=== PATIENT | female | born 1965 | race Caucasian/White ===

== ENCOUNTER 2017-07-08 20:16 | Inpatient (IN) ==
--- NOTE | 2017-07-08 20:28 | Emergency Department Note ---
Disposition Clinical Impression: Abdominal pain Qualifiers: Abdominal location: generalized Qualified Code(s): R10.84 - Generalized abdominal pain Low back pain Qualifiers: Chronicity: acute Back pain laterality: left Sciatica presence: without sciatica Qualified Code(s): M54.5 - Low back pain Constipation Qualifiers: Constipation type: unspecified constipation type Qualified Code(s): K59.00 - Constipation, unspecified Disposition: Admitted As Inpatient Condition: Good Referrals: NONE,PCP [Primary Care Provider] - Forms: ED Satisfaction Letter, Work/School Release Time of Disposition: 23:23 General Adult HPI - General Chief complaint: ED Abdominal Pain Stated complaint: abdominal/back pain Time Seen by Provider: 07/08/17 20:28 Source: patient Limitations: no limitations Nursing Notes Reviewed: Yes Vital Signs Reviewed: Yes - History of Present Illness HPI Narrative: Ms. Celeste is a very pleasant 51-year-old female who presents to the [facility] emergency department with the chief complaint of low back pain for duration of one day. She reports his back pain started she woke up this morning and has been constant since then. She notes this pain is localized to her left side. She has tried taking Motrin as well as using heating pad with mild relief only. Patient was seen on 07/03/17 here at the emergency department and was diagnosed with colitis and was given ciprofloxacin , Flagyl and NSAID therapy. Patient had an extensive workup involving a gallbladder ultrasound, CT of abdomen and pelvis as well as blood work. Since then patient has been taking all her medications as prescribed. She reports that her abdominal pain has slightly improved but still is complaining of diffuse achy abdominal pain. Her last bowel movement was yesterday. She denies any subjective fevers, chest pain, short of breath, palpitations, dysuria , gross hematuria, hematochezia, melena. Patient is a chronic smoker and smokes about 1 pack per day. She denies any alcohol abuse or illicit drug use. She denies any urinary incontinence, saddle anesthesia, lower extremity weakness or weight loss. No other complaints at this time. 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 EYES: Ocular movements grossly intact RESP: NRD without use of accessory musculature, CTA b/l with no wheezes/rales/ rhonchi CARD: Regular rhythm, without murmurs, rubs, or gallop ABD: soft, diffusely tender, no guarding/distention/rigidity SKIN: normal appearance, no pallor/diaphoresis,mottling,jaundice,cyanosis BACK: Left paraspinal spasm and tenderness EXT: PT pulses 2+ and symmetrical; no lateralizing edema; no other lesions seen PSYCH: appropriate mood/affect - General Limitations: no limitations General appearance: alert, in no apparent distress Course Course Narrative: Patient was seen and examined at bedside. Vital signs are reviewed and show a tachycardia in the 120s. Physical examination demonstrates left lumbar paraspinal spasm that is very tender to palpation. Her gambling exam demonstrates diffusely tender abdomen without any rigidity, rebound tenderness or distention. Physical examination was otherwise benign. Prior workup was extensively reviewed back on 07/03/2017. Patient has been taking all of her medication as prescribed including her Abx Cipro and Flagyl. In the setting of no improvement after therapy and diffusely tender abdomen will begin workup with CT of abdomen and pelvis with IV contrast, UA, CBC, CMP, lactic acid and will administer 1 L of IV, Zofran, Toradol and Cogentin. This disposition and plan was discussed with patient who was agreeable at this time. We will continue to monitor for improvement. 2223: Re-examination after CT showing back pain still present after Cogentin and Toradol. CBC showing mild leukocytosis of 12.3. UA, CMP and Lactic acid unremarkable. Potassium 20mEq given. CT scan result pending. 2321: CT scan demonstrates acute on chronic T1 vertebral body fracture as well as a large amount of stool within the colon that is consistent with obstruction versus ileus. There is no evidence of colitis at this time. Findings were relayed to general surgery team with Dr. Hamilton who recommended NG tube placement and coags. Hospitalist was paged and spoke with Dr. Pruett, who will accept this patient for hospital admission. No further recommendations at this time per their team. Disposition was discussed with patient who understands and agrees to this plan. All questions and concerns were addressed. Vital Signs Temperature 98.2 F 07/08/17 20:17 Pulse Rate 120 07/08/17 20:17 Respiratory Rate 20 07/08/17 20:17 Blood Pressure 179/102 07/08/17 20:17 O2 Sat by Pulse Oximetry 98 07/08/17 20:17 Temperature 98.2 F 07/08/17 20:17 Pulse Rate 97 07/08/17 21:49 Respiratory Rate 22 07/08/17 21:49 Blood Pressure 127/76 07/08/17 21:49 O2 Sat by Pulse Oximetry 99 07/08/17 21:49 Oxygen Delivery Oxygen Delivery Room Air Medical Decision Making - Medical Records Medical records reviewed: Yes I reviewed the patient's medical records. - Lab Data Lab results reviewed: Yes I reviewed the patient's lab results. Result diagrams: 07/08/17 21:29 07/08/17 21:29 Lab Results 07/08/17 07/08/17 07/08/17 Range/Units 20:42 21:29 21:29 WBC 12.8 H D (4.3-11.1) K/mcL RBC 3.61 L (3.82-4.97) M/mcL Hgb 11.0 L (11.5-15.4) g/dL Hct 32.4 L (35.3-44.9) % MCV 89.8 (83.0-100.0) fL MCH 30.5 (28.0-33.3) pg MCHC 34.0 (31.6-35.5) g/dL RDW 13.5 (11.5-14.5) % Plt Count 263 (140-400) K/mcL MPV 9.4 (9.4-12.4) fL Immature Gran % 0.3 (0-4) % Seg Neutrophils % 81.8 % Lymphocytes % 11.7 % Monocytes % 5.1 % Eosinophils % 0.6 % Basophils % 0.5 % Neutrophils # 10.5 H (1.6-8.9) K/mcL Lymphocytes # 1.5 (0.6-4.6) K/mcL Monocytes # 0.7 (0.0-1.3) K/mcL Eosinophils # 0.1 (0.0-0.6) K/mcL Basophils # 0.1 (0.0-0.2) K/mcL Sodium 136 (136-145) mEq/L Potassium 3.3 L (3.5-5.1) mEq/L Chloride 104 (98-107) mEq/L Carbon Dioxide 27 (23-29) mEq/L BUN 10 (6-20) mg/dL Creatinine 0.70 (0.60-1.20) mg/dL Est GFR ( Amer) > 60 (> 60) Est GFR (Non-Af Amer) > 60 (> 60) BUN/Creatinine Ratio 14 (6-26) Glucose 105 (70-105) mg/dL Calculated Osmolality 281 (280-300) Lactic Acid (0.5-2.2) mmol/L Calcium 9.3 (8.6-10.3) mg/dL Total Bilirubin 0.5 (0.3-1.0) mg/dL AST 27 (13-39) Units/L ALT 15 (7-52) Units/L Alkaline Phosphatase 78 (34-104) Units/L Serum Total Protein 7.5 (6.4-8.9) g/dL Albumin 3.8 (3.5-5.7) g/dL Globulin 3.7 H (2.4-3.5) g/dL Albumin/Globulin Ratio 1.0 L (1.1-2.2) Urine Color Yellow (Yellow) Urine Clarity Hazy A (Clear) Urine pH 5.5 (5.0-8.0) pH Units Ur Specific [place] 1.024 (1.010-1.025) Urine Protein Negative (Neg-Trace) mg/dL Urine Glucose (UA) Normal (Normal) mg/dL Urine Ketones Negative (Negative) mg/dL Urine Blood Negative (Negative) Urine Nitrite Negative (Negative) Urine Bilirubin Negative (Negative) Urine Urobilinogen Normal (Normal) mg/dL Ur Leukocyte Esterase Moderate H (Negative) Urine Microscopic RBC 0-3 (0-3) per hpf Urine Microscopic WBC 30-50 H (0-3) per hpf Ur Squamous Epith Cells Many H (None-Few) per lpf Urine Bacteria None Seen (None-Few) per hpf Hyaline Casts None Seen (None-Few) per lpf Ur Culture Indicated? NO. A (NO) 07/08/17 Range/Units 21:29 WBC (4.3-11.1) K/mcL RBC (3.82-4.97) M/mcL Hgb (11.5-15.4) g/dL Hct (35.3-44.9) % MCV (83.0-100.0) fL MCH (28.0-33.3) pg MCHC (31.6-35.5) g/dL RDW (11.5-14.5) % Plt Count (140-400) K/mcL MPV (9.4-12.4) fL Immature Gran % (0-4) % Seg Neutrophils % % Lymphocytes % % Monocytes % % Eosinophils % % Basophils % % Neutrophils # (1.6-8.9) K/mcL Lymphocytes # (0.6-4.6) K/mcL Monocytes # (0.0-1.3) K/mcL Eosinophils # (0.0-0.6) K/mcL Basophils # (0.0-0.2) K/mcL Sodium (136-145) mEq/L Potassium (3.5-5.1) mEq/L Chloride (98-107) mEq/L Carbon Dioxide (23-29) mEq/L BUN (6-20) mg/dL Creatinine (0.60-1.20) mg/dL Est GFR ( Amer) (> 60) Est GFR (Non-Af Amer) (> 60) BUN/Creatinine Ratio (6-26) Glucose (70-105) mg/dL Calculated Osmolality (280-300) Lactic Acid 0.7 (0.5-2.2) mmol/L Calcium (8.6-10.3) mg/dL Total Bilirubin (0.3-1.0) mg/dL AST (13-39) Units/L ALT (7-52) Units/L Alkaline Phosphatase (34-104) Units/L Serum Total Protein (6.4-8.9) g/dL Albumin (3.5-5.7) g/dL Globulin (2.4-3.5) g/dL Albumin/Globulin Ratio (1.1-2.2) Urine Color (Yellow) Urine Clarity (Clear) Urine pH (5.0-8.0) pH Units Ur Specific [place] (1.010-1.025) Urine Protein (Neg-Trace) mg/dL Urine Glucose (UA) (Normal) mg/dL Urine Ketones (Negative) mg/dL Urine Blood (Negative) Urine Nitrite (Negative) Urine Bilirubin (Negative) Urine Urobilinogen (Normal) mg/dL Ur Leukocyte Esterase (Negative) Urine Microscopic RBC (0-3) per hpf Urine Microscopic WBC (0-3) per hpf Ur Squamous Epith Cells (None-Few) per lpf Urine Bacteria (None-Few) per hpf Hyaline Casts (None-Few) per lpf Ur Culture Indicated? (NO) - Radiology Data Radiology results reviewed: Yes I reviewed the patient's radiology results.
[2017-07-08] MEDS ORDERED: Ondansetron ODT 4 MG TAB.RAPDIS SL ONE (20:47)
[2017-07-08] MEDS ORDERED: 0.9 % Sodium Chloride 1,000 ML IVC ONE (20:54)
[2017-07-08 20:58] LABS: Bilirubin,Urine Negative (Negative); Blood,Urine Negative (Negative); Color,Urine Yellow (Yellow); Glucose,Urine (UA) Normal (Normal); Ketones,Urine Negative (Negative); Leukocyte Esterase,Urine Moderate (Negative); Nitrite,Urine Negative (Negative); PH,Urine 5.5 pH Units (5.0-8.0); Protein,Urine Negative (Neg-Trace); Specific Gravity,Urine 1.024 (1.010-1.025); Urobilinogen,Urine Normal (Normal)
[2017-07-08 21:03] LABS: Bacteria,Urine None Seen per hpf (None-Few); Hyaline Casts,Urine None Seen per lpf (None-Few); RBC,Urine 0-3 per hpf (0-3); Squamous Epithelial Cell,Urine Many per lpf (None-Few); WBC,Urine 30-50 per hpf (0-3)
[2017-07-08 21:04] LABS: Clarity,Urine Hazy (Clear)
[2017-07-08] MEDS ORDERED: Ketorolac 30 MG/ML VIAL IVP ONE (21:05)
[2017-07-08 21:46] LABS: Basophils # 0.1 K/mcL (0.0-0.2); Basophils % 0.5 %; Eosinophils # 0.1 K/mcL (0.0-0.6); Eosinophils % 0.6 %; Hematocrit 32.4 % (35.3-44.9); Immature Granulocytes % 0.3 % (0-4); Lymphocytes # 1.5 K/mcL (0.6-4.6); Lymphocytes % 11.7 %; Mean Corpuscular Hemoglobin 30.5 pg (28.0-33.3); Mean Corpuscular Volume 89.8 fL (83.0-100.0); Mean Platelet Volume 9.4 fL (9.4-12.4); Monocytes # 0.7 K/mcL (0.0-1.3); Monocytes % 5.1 %; Neutrophils # 10.5 K/mcL (1.6-8.9); Platelet Count 263 K/mcL (140-400); Red Blood Count 3.61 M/mcL (3.82-4.97); Red Cell Distribution Width 13.5 % (11.5-14.5); Segmented Neutrophils % 81.8 %
[2017-07-08 22:06] LABS: Alanine Aminotransferase 15 Units/L (7-52); Albumin 3.8 g/dL (3.5-5.7); Alkaline Phosphatase 78 Units/L (34-104); Aspartate Amino Transferase 27 Units/L (13-39); BUN/Creatinine Ratio 14 (6-26); Bilirubin,Total 0.5 mg/dL (0.3-1.0); Blood Urea Nitrogen 10 mg/dL (6-20); Calcium 9.3 mg/dL (8.6-10.3); Carbon Dioxide 27 mEq/L (23-29); Chloride 104 mEq/L (98-107); Globulin 3.7 g/dL (2.4-3.5); Glucose 105 mg/dL (70-105); Osmolality,Calculated 281 (280-300); Potassium 3.3 mEq/L (3.5-5.1); Sodium 136 mEq/L (136-145); Total Protein 7.5 g/dL (6.4-8.9); eGFR For African Americans > 60 (> 60); eGFR For Non-African Americans > 60 (> 60)
--- NOTE | 2017-07-08 22:31 | Emergency Department Note ---
Disposition Clinical Impression: Abdominal pain, Low back pain Disposition: Still a Patient Condition: Good Referrals: NONE,PCP [Primary Care Provider] - Forms: ED Satisfaction Letter, Work/School Release General Adult HPI - General Chief complaint: ED Abdominal Pain Stated complaint: abdominal/back pain Time Seen by Provider: 07/08/17 20:28 Source: patient Limitations: no limitations Nursing Notes Reviewed: Yes Vital Signs Reviewed: Yes - History of Present Illness Pain Scale: 7 - Related Data Previous Rx's Medication Instructions Recorded Ciprofloxacin [Cipro] 500 mg PO BID 14 Days #28 tablet 07/03/17 Ibuprofen [Motrin] 600 mg PO Q8HR PRN #20 tab 07/03/17 metroNIDAZOLE [Flagyl] 500 mg PO TID #42 tablet 07/03/17 Allergies Allergy/AdvReac Type Severity Reaction Status Date / Time morphine Allergy Rash Verified 07/08/17 22:18 Past Medical History - Past Medical History Medical history: Reports: kidney stones Surgical history: Reports: non-contributory Psychiatric history: Reports: anxiety, depression 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 - Social History Smoking Status: Current every day smoker Smokeless Tobacco Status: No Alcohol use: Reports: none Drug use: Reports: marijuana Physical Exam - General Limitations: no limitations General appearance: alert, in no apparent distress Course Vital Signs Temperature 98.2 F 07/08/17 20:17 Pulse Rate 120 07/08/17 20:17 Respiratory Rate 20 07/08/17 20:17 Blood Pressure 179/102 07/08/17 20:17 O2 Sat by Pulse Oximetry 98 07/08/17 20:17 Temperature 98.2 F 07/08/17 20:17 Pulse Rate 93 07/08/17 23:05 Respiratory Rate 20 07/08/17 23:05 Blood Pressure 158/99 07/08/17 23:05 O2 Sat by Pulse Oximetry 99 07/08/17 23:05 Oxygen Delivery Oxygen Delivery Room Air Medical Decision Making - Lab Data Result diagrams: 07/08/17 21:29 07/08/17 21:29 Lab Results 07/08/17 07/08/17 07/08/17 Range/Units 20:42 21:29 21:29 WBC 12.8 H D (4.3-11.1) K/mcL RBC 3.61 L (3.82-4.97) M/mcL Hgb 11.0 L (11.5-15.4) g/dL Hct 32.4 L (35.3-44.9) % MCV 89.8 (83.0-100.0) fL MCH 30.5 (28.0-33.3) pg MCHC 34.0 (31.6-35.5) g/dL RDW 13.5 (11.5-14.5) % Plt Count 263 (140-400) K/mcL MPV 9.4 (9.4-12.4) fL Immature Gran % 0.3 (0-4) % Seg Neutrophils % 81.8 % Lymphocytes % 11.7 % Monocytes % 5.1 % Eosinophils % 0.6 % Basophils % 0.5 % Neutrophils # 10.5 H (1.6-8.9) K/mcL Lymphocytes # 1.5 (0.6-4.6) K/mcL Monocytes # 0.7 (0.0-1.3) K/mcL Eosinophils # 0.1 (0.0-0.6) K/mcL Basophils # 0.1 (0.0-0.2) K/mcL Sodium 136 (136-145) mEq/L Potassium 3.3 L (3.5-5.1) mEq/L Chloride 104 (98-107) mEq/L Carbon Dioxide 27 (23-29) mEq/L BUN 10 (6-20) mg/dL Creatinine 0.70 (0.60-1.20) mg/dL Est GFR ( Amer) > 60 (> 60) Est GFR (Non-Af Amer) > 60 (> 60) BUN/Creatinine Ratio 14 (6-26) Glucose 105 (70-105) mg/dL Calculated Osmolality 281 (280-300) Lactic Acid (0.5-2.2) mmol/L Calcium 9.3 (8.6-10.3) mg/dL Total Bilirubin 0.5 (0.3-1.0) mg/dL AST 27 (13-39) Units/L ALT 15 (7-52) Units/L Alkaline Phosphatase 78 (34-104) Units/L Serum Total Protein 7.5 (6.4-8.9) g/dL Albumin 3.8 (3.5-5.7) g/dL Globulin 3.7 H (2.4-3.5) g/dL Albumin/Globulin Ratio 1.0 L (1.1-2.2) Urine Color Yellow (Yellow) Urine Clarity Hazy A (Clear) Urine pH 5.5 (5.0-8.0) pH Units Ur Specific [place] 1.024 (1.010-1.025) Urine Protein Negative (Neg-Trace) mg/dL Urine Glucose (UA) Normal (Normal) mg/dL Urine Ketones Negative (Negative) mg/dL Urine Blood Negative (Negative) Urine Nitrite Negative (Negative) Urine Bilirubin Negative (Negative) Urine Urobilinogen Normal (Normal) mg/dL Ur Leukocyte Esterase Moderate H (Negative) Urine Microscopic RBC 0-3 (0-3) per hpf Urine Microscopic WBC 30-50 H (0-3) per hpf Ur Squamous Epith Cells Many H (None-Few) per lpf Urine Bacteria None Seen (None-Few) per hpf Hyaline Casts None Seen (None-Few) per lpf Ur Culture Indicated? NO. A (NO) 07/08/17 Range/Units 21:29 WBC (4.3-11.1) K/mcL RBC (3.82-4.97) M/mcL Hgb (11.5-15.4) g/dL Hct (35.3-44.9) % MCV (83.0-100.0) fL MCH (28.0-33.3) pg MCHC (31.6-35.5) g/dL RDW (11.5-14.5) % Plt Count (140-400) K/mcL MPV (9.4-12.4) fL Immature Gran % (0-4) % Seg Neutrophils % % Lymphocytes % % Monocytes % % Eosinophils % % Basophils % % Neutrophils # (1.6-8.9) K/mcL Lymphocytes # (0.6-4.6) K/mcL Monocytes # (0.0-1.3) K/mcL Eosinophils # (0.0-0.6) K/mcL Basophils # (0.0-0.2) K/mcL Sodium (136-145) mEq/L Potassium (3.5-5.1) mEq/L Chloride (98-107) mEq/L Carbon Dioxide (23-29) mEq/L BUN (6-20) mg/dL Creatinine (0.60-1.20) mg/dL Est GFR ( Amer) (> 60) Est GFR (Non-Af Amer) (> 60) BUN/Creatinine Ratio (6-26) Glucose (70-105) mg/dL Calculated Osmolality (280-300) Lactic Acid 0.7 (0.5-2.2) mmol/L Calcium (8.6-10.3) mg/dL Total Bilirubin (0.3-1.0) mg/dL AST (13-39) Units/L ALT (7-52) Units/L Alkaline Phosphatase (34-104) Units/L Serum Total Protein (6.4-8.9) g/dL Albumin (3.5-5.7) g/dL Globulin (2.4-3.5) g/dL Albumin/Globulin Ratio (1.1-2.2) Urine Color (Yellow) Urine Clarity (Clear) Urine pH (5.0-8.0) pH Units Ur Specific [place] (1.010-1.025) Urine Protein (Neg-Trace) mg/dL Urine Glucose (UA) (Normal) mg/dL Urine Ketones (Negative) mg/dL Urine Blood (Negative) Urine Nitrite (Negative) Urine Bilirubin (Negative) Urine Urobilinogen (Normal) mg/dL Ur Leukocyte Esterase (Negative) Urine Microscopic RBC (0-3) per hpf Urine Microscopic WBC (0-3) per hpf Ur Squamous Epith Cells (None-Few) per lpf Urine Bacteria (None-Few) per hpf Hyaline Casts (None-Few) per lpf Ur Culture Indicated? (NO) Attestation Statement - Attestation Attestation: I, David Kinney, examined this patient and my medical decision-making was reviewed with the DIMENSION SPECIFICATION INSPECTOR/PA/Advanced Practice Nurse/Resident Physician. I agree with the documented findings, disposition and treatment plan as described except to the extent set forth below. 51-year-old female presents emergency Department with concerns of abdominal pain and back pain. Patient was evaluated recently in emergency department diagnosed with colitis and took the full course of Cipro and Flagyl. Patient states she has had subjective fevers but denies taking her temperature. No hematochezia or melena. Abdominal pain and back pain of any medications. Patient will have repeat laboratory testing and a CT scan of her abdomen to evaluate for failure of outpatient antibiotics.
[2017-07-08 23:40] LABS: INR 1.1; Prothrombin Time 11.7 Seconds (9.4-12.1)
[2017-07-08 23:42] LABS: Activated Partial Thrombo Time 30.2 Seconds (26.0-36.0)
[2017-07-08] MEDS ORDERED: Ondansetron 4 MG/2 ML VIAL IVP PRN (23:54)
[2017-07-08] MEDS ORDERED: Naloxone 0.4 MG/ML INJ IVP PRN (23:54)
--- NOTE | 2017-07-08 23:59 | Internal Med History&Physical ---
Date of Encounter: 07/08/17 Time of Encounter: 23:56 Internal Medicine - H&P: HPI Chief complaint: Back pain Admitted From: Home Plans for Post Hospital Care: Home History of present illness: Ms. Celeste is a 51 year old female with medical history of anxiety and depression, chronic tobacco abuse. She presented to the ER initially on with abdominal pain and was diagnosed with colitis and nephrolithiasis by imaging. She was discharged home with ciprofloxacin, Flagyl and NSAIDs. During that visit, she had an extensive workup including a negative gallbladder ultrasound, CT abdomen and pelvis as well as blood work. The patient has been compliant with her medications. She re-presented today with complaints of left-sided low back pain which has been severe and constant since waking up in the morning. The pain is non- radiating, and was not relieved by [id number] medications. She denies any new nausea or vomiting, reports that the right lower quadrant abdominal pain improved very minimally. Last bowel movement was 2 days ago. She denies fever, chest pain, shortness of breath, palpitations, hematuria, hematemesis or melena. She reports having had problems with bowel movement since her teenage years. Status post recently diagnosed with colon cancer. She denies any illicit drug use. The CAT scan that was done 07/03/17 had revealed a possible chronic L1 vertebral fracture. The patient denies urinary or bowel incontinence, saddle anesthesia, lower extremity weakness or weight loss. CT scan today demonstrates acute vs chronic L1 vertebral body fracture as well as a large amount of stool within the colon that is consistent with obstruction versus ileus. Patient will be placed on observation for further workup for vertebral body fracture as well as management of ileus vs obstruction versus constipation. Past Med Surg Social Fam HX - Past Medical History Medical history: kidney stones Psychiatric history: anxiety, depression - Past Surgical History Surgical History: non-contributory - Social History Smoking Status: Current every day smoker Smokeless Tobacco Status: No Alcohol use: none Drug use: marijuana Internal Medicine - H&P: Meds Ciprofloxacin [Cipro] 500 mg PO BID 14 Days #28 tablet 07/03/17 [Rx] Ibuprofen [Motrin] 600 mg PO Q8HR PRN #20 tab 07/03/17 [Rx] metroNIDAZOLE [Flagyl] 500 mg PO TID #42 tablet 07/03/17 [Rx] 3 Allergy/AdvReac Type Severity Reaction Status Date / Time morphine Allergy Rash Verified 07/08/17 22:18 All Systems PM: A 10-system review of systems was performed and is negative for pertinent findings except as documented above in the HPI. - Constitutional Constitutional: as per HPI - EENT Eyes: as per HPI Ears: as per HPI Nose, mouth and throat: as per HPI - Cardiovascular Cardiovascular ROS IM: as per HPI - Respiratory Respiratory: as per HPI - Gastrointestinal Gastrointestinal: as per HPI - Genitourinary Genitourinary: as per HPI - Musculoskeletal Musculoskeletal ROS IM: as per HPI - Integumentary Integumentary IM: as per HPI - Neurological Neurological ROS: as per HPI - Hematologic/Lymphatic Hematologic/Lymphatic: as per HPI - Constitutional Vitals: Temp Pulse Resp BP Pulse Ox 98.2 F 93 20 158/99 99 07/08/17 20:17 07/08/17 23:05 07/08/17 23:05 07/08/17 23:05 07/08/17 23:05 General appearance: Present: cachectic, mild distress (mild painful distress), pleasant - Head Head exam: Present: atraumatic, normocephalic - Eye Eye exam: Present: PERRL, conjuntiva pink, sclera anicteric Pupils: Present: PERRL - Neck Neck exam general surgery: Present: supple, trachea midline. Absent: lymphadenopathy - Respiratory Respiratory exam: Present: CTAB. Absent: accessory muscle use, rales, rhonchi, wheezes - Cardiovascular Cardiovascular exam: Present: RRR, +S1, +S2. Absent: diastolic murmur, gallop, rubs, systolic murmur - GI/Abdominal GI/Abdominal exam: Present: normal bowel sounds, soft, tenderness (RLQ tenderness. ), no peritoneal signs. Absent: distended - Extremities Exam Extremities exam: Present: warm, radial pulses palpable and symmetrical. Absent : calf tenderness, cyanotic, pedal edema - Back Exam Additional comments: focal Left lower lumbar region tenderness - Neurological Exam Neurological exam: Present: alert, CN II-XII intact, oriented X3, no focal deficits. Absent: pronater drift, facial droop, speech deficit - Skin Skin exam: Present: dry, intact Internal Med - H&P Results - Labs CBC & Chem 7: 07/08/17 21:29 07/08/17 21:29 Labs: Short CBC 07/08/17 Range/Units 21:29 WBC 12.8 H D (4.3-11.1) K/mcL Hgb 11.0 L (11.5-15.4) g/dL Hct 32.4 L (35.3-44.9) % Plt Count 263 (140-400) K/mcL Neutrophils # 10.5 H (1.6-8.9) K/mcL BMP 07/08/17 21:29 Sodium 136 Potassium 3.3 L Chloride 104 Carbon Dioxide 27 BUN 10 Creatinine 0.70 Glucose 105 Calcium 9.3 Liver Function 07/08/17 Range/Units 21:29 Total Bilirubin 0.5 (0.3-1.0) mg/dL AST 27 (13-39) Units/L ALT 15 (7-52) Units/L Alkaline Phosphatase 78 (34-104) Units/L Albumin 3.8 (3.5-5.7) g/dL Urine 07/08/17 Range/Units 20:42 Urine Color Yellow (Yellow) Urine Clarity Hazy A (Clear) Urine pH 5.5 (5.0-8.0) pH Units Ur Specific Salmon 1.024 (1.010-1.025) Urine Protein Negative (Neg-Trace) mg/dL Urine Glucose (UA) Normal (Normal) mg/dL - Impressions ITS Impressions Abdomen/Pelvis CT 07/08/17 21:16 IMPRESSION: Although described previously is chronic, some of the fracture planes involving the L1 vertebral body appear to be well defined, and therefore this fracture has a more acute appearance. That would be better evaluated with a dedicated lumbar spine CT or MRI. There is a large amount of stool within the colon, concerning for constipation. Obstruction is also considered, especially given the mural thickening in the region of the splenic flexure. Consider direct visualization. Focal fluid filled dilation of small bowel in the left mid upper abdomen with fecalization of contents. Again, that is nonspecific. It does suggests stasis, possibly ileus, although a developing obstruction would be considered as well. Consider further evaluation with a small bowel follow-through for better evaluation of the bowel motility on a more dynamic basis. D/ / Rafiq Meier MD / Rafiq Meier MD Interpreting Provider: Rafiq Meier MD - Assessment and plan (1) Ileus Current Visit: Yes Status: Acute Assessment and plan: Abdomen CT shows focal fluid dilation of small bowel nonspecific possible ileus , possible obstruction. Obtain small bowel follow through. Nothing by mouth for now. Surgery has been consulted (2) Lumbar vertebral fracture Current Visit: Yes Status: Acute Assessment and plan: Patient with 5 days history of left lower back pain. No history of trauma. Abdomen CT done 07/03/17 and 07/09/17 with different views regarding chronicity of fracture of L1 . Patient states Chronic tobacco use possible osteoporosis. Doing MRI of the lumbar spine, obtain vitamin D level. Consider spine surgery evaluation depending on reports of MRI. Pain control. Qualifiers: Encounter type: initial encounter Lumbar vertebra fracture level: L1 Fracture type: closed Fracture morphology: unspecified fracture morphology Qualified Code(s): S32.019A - Unspecified fracture of first lumbar vertebra, initial encounter for closed fracture (3) Constipation Current Visit: Yes Status: Acute Assessment and plan: Abdomen and pelvis CAT scan shows large amount of stool in the colon consulted for constipation Is Also Considered. The Thickening in the Region of the Splenic Flexor. Surgery Was Consulted by the ER Team. Place Patient Nothing by Mouth for Now. Qualifiers: Constipation type: unspecified constipation type Qualified Code(s): K59.00 - Constipation, unspecified (4) Colitis Current Visit: Yes Status: Acute Assessment and plan: Continue ciprofloxacin and Flagyl IV. (5) Tobacco abuse Current Visit: Yes Status: Chronic Assessment and plan: Encouraged cessation. (6) Hypokalemia Current Visit: Yes Status: Acute Assessment and plan: replaced , rpt chem a.m (7) Leukocytosis Current Visit: Yes Status: Acute Assessment and plan: New compared to CBC of 07/03 Continue cipro and flagyl IV, continue to monitor Qualifiers: Leukocytosis type: unspecified Qualified Code(s): D72.829 - Elevated white blood cell count, unspecified - Time Spent With Patient Total time spent is greater than 50% in coordination of care (as documented) at patient's floor/unit and/or counseling patient:
[2017-07-09 01:03] LABS: Basophils # 0.1 K/mcL (0.0-0.2); Basophils % 0.6 %; Eosinophils # 0.1 K/mcL (0.0-0.6); Eosinophils % 0.8 %; Hematocrit 32.4 % (35.3-44.9); Hemoglobin 10.8 g/dL (11.5-15.4); Immature Granulocytes % 0.5 % (0-4); Lymphocytes # 1.9 K/mcL (0.6-4.6); Lymphocytes % 17.5 %; Mean Corpuscular HGB Conc 33.3 g/dL (31.6-35.5); Mean Corpuscular Hemoglobin 30.6 pg (28.0-33.3); Mean Corpuscular Volume 91.8 fL (83.0-100.0); Mean Platelet Volume 9.8 fL (9.4-12.4); Monocytes # 0.5 K/mcL (0.0-1.3); Monocytes % 4.6 %; Neutrophils # 8.1 K/mcL (1.6-8.9); Platelet Count 254 K/mcL (140-400); Red Blood Count 3.53 M/mcL (3.82-4.97); Red Cell Distribution Width 13.6 % (11.5-14.5)
[2017-07-09] MEDS: MetroNIDAZOLE 500 MG/100 ML 500 MG/100 ML BAG IVPB SCH ×4 (01:11→23:55)
[2017-07-09] MEDS: OXYCODONE Oral CONC 10 MG/0.5 ML ORAL.SYG SL PRN ×3 (01:12→15:16)
[2017-07-09] MEDS: 0.9 % Sodium Chloride 1,000 ML IVC SCH ×3 (01:12→23:56)
[2017-07-09 01:20] LABS: BUN/Creatinine Ratio 13 (6-26); Blood Urea Nitrogen 8 mg/dL (6-20); Calcium 8.5 mg/dL (8.6-10.3); Carbon Dioxide 24 mEq/L (23-29); Chloride 109 mEq/L (98-107); Glucose 88 mg/dL (70-105); Osmolality,Calculated 284 (280-300); Potassium 3.5 mEq/L (3.5-5.1); Sodium 138 mEq/L (136-145); eGFR For African Americans > 60 (> 60); eGFR For Non-African Americans > 60 (> 60)
[2017-07-09] MEDS: Ketorolac 15 MG/ML VIAL IVP PRN ×3 (04:03→17:35)
--- NOTE | 2017-07-09 09:30 | General Surgery Consult Note ---
<Mukesh Locke - Last Filed: 07/09/17 13:35> Date of Encounter: 07/09/17 Time of Encounter: 08:45 Assessment and Plan (1) Constipation Current Visit: Yes Status: Acute Pt with large amounts of stool in Colon on CT scan, backing up into the small intestine. No signs of obstruction Exam is benign. presentation most consistent with constipation. May be related to opioid use. Hx of Opioid abuse and Suboxone treatment. Plan: Clear liquid diet once patient begins to move her bowels well can advance diet Miralax bowel prep patient can drink slowly through out the day as tolerated Milk and Molasses enema x 2 one given this morning one this evening. COntinue Zofran PRN for Nausea continue pain control. Qualifiers: Constipation type: unspecified constipation type Qualified Code(s): K59.00 - Constipation, unspecified (2) Lumbar vertebral fracture Current Visit: Yes Status: Acute Management per primary team Qualifiers: Encounter type: initial encounter Lumbar vertebra fracture level: L1 Fracture type: closed Fracture morphology: unspecified fracture morphology Qualified Code(s): S32.019A - Unspecified fracture of first lumbar vertebra, initial encounter for closed fracture History of Present Illness Consult date: 07/08/17 Reason for consult: abdominal pain Requesting physician: Caryn Walker History of present illness: 51 yo F c PMhx of Kidney stones, Anxiety, Depression, and IVDA reports to [facility] c /o Abd pain and back pain. Patient was seen in ED on 07/03 for complaints of abd and R flank pain that began 3 days earlier and worked up with GB u/s, CT abd pelvis which showed normal gallbladder, L1 compression Fx, and wall thickening of the hepatic flexure and transverese colon. Patient was sent home on 14 days course of cipro/flagyl, Zofran and Ibuprofen. Patient reports being compliant with her medications. Patient came back yesterday in for abd pain and back pain that began that morning. Patient reports last BM was wednesday. She says her normal pattern is a bowel movement every other day. She says it can be every 3 days though. Patient was worked up int he ED again with a CT abd pelvis which remonstrated the Compression fracture though now thought to be acute on chronic. Patient also noted to have a large amount of stool in the colon, focal mural thickening of the large bowel within the region of the splenic flexure, fluid filled dialtion of small bowel withing hte left mid upper abdomen with some fecalization of contents noted. Surgery was consulted for these imaging findings and concern of constipation vs. ileus, vs. obstruction. Patient was sent for a small bowel follow through this mornign by primary team, but was unable to have test performed due to contrast still being present from CT scan yesterday and the large amounts of stool in colon. Patient denies N, V, blood in stool, CP, SOB. Patient has never had a colonoscopy. Patient has a family hx of Colon CA with Sister dx in her 60s recently having surgery. Through looking at her [facility] patient was on Suboxone at least since 2015 but was last filled a months worth at the beginning of March. Past Med Surg Social Fam HX - Past Medical History Medical history: kidney stones Psychiatric history: anxiety, depression - Past Surgical History Surgical History: non-contributory - Social History Smoking Status: Current every day smoker Packs per day: 1 Smokeless Tobacco Status: No Alcohol use: none Drug use: marijuana - Family History Mother Hx Family Cardiac Disorders: Yes (Stroke) Sister Hx Family Cancer: Yes (colon) Medications and Allergies Ciprofloxacin [Cipro] 500 mg PO BID 14 Days #28 tablet 07/03/17 [Rx] Ibuprofen [Motrin] 600 mg PO Q8HR PRN #20 tab 07/03/17 [Rx] metroNIDAZOLE [Flagyl] 500 mg PO TID #42 tablet 07/03/17 [Rx] 3 Allergy/AdvReac Type Severity Reaction Status Date / Time morphine Allergy Rash Verified 07/08/17 22:18 Review of Systems All systems PM: The remainder of the systems were reviewed and are negative General Surgery Exam Initial Vital Signs Temp Pulse Resp BP Pulse Ox 98.2 F 120 20 179/102 98 07/08/17 20:17 07/08/17 20:17 07/08/17 20:17 07/08/17 20:17 07/08/17 20:17 - General physical appearance well developed, no distress - ENT no hearing loss - Neck trachea midline - Respiratory normal expansion, normal respiratory effort, clear to auscultation - Cardiovascular Cardiovascular exam: Present: RRR, no murmurs/rubs/gallops - Abdomen Abdomen general surgery: Present: bowel sounds present, soft, tender. Absent: guarding, rebound Abdominal Tenderness: Present: diffusely - Integumentary Integumentary general surgery: Present: warm and dry - Neurologic Present: CN 2-12 grossly intact - Musculoskeletal Present: normal posture - Psychiatric Psychiatric general surgery: Present: A&Ox3, speech is normal, memory intact Exam Initial Vital Signs Temp Pulse Resp BP Pulse Ox 98.2 F 120 20 179/102 98 07/08/17 20:17 07/08/17 20:17 07/08/17 20:17 07/08/17 20:17 07/08/17 20:17 Results - Labs 07/09/17 00:44 07/09/17 00:44 Abnormal lab results RBC 3.53 M/mcL (3.82-4.97) L 07/09/17 00:44 Hgb 10.8 g/dL (11.5-15.4) L 07/09/17 00:44 Hct 32.4 % (35.3-44.9) L 07/09/17 00:44 Chloride 109 mEq/L (98-107) H 07/09/17 00:44 Calcium 8.5 mg/dL (8.6-10.3) L 07/09/17 00:44 Globulin 3.7 g/dL (2.4-3.5) H 07/08/17 21:29 Albumin/Globulin Ratio 1.0 (1.1-2.2) L 07/08/17 21:29 Urine Clarity Hazy (Clear) A 07/08/17 20:42 Ur Leukocyte Esterase Moderate (Negative) H 07/08/17 20:42 Urine Microscopic WBC 30-50 per hpf (0-3) H 07/08/17 20:42 Ur Squamous Epith Cells Many per lpf (None-Few) H 07/08/17 20:42 Ur Culture Indicated? NO. (NO) A 07/08/17 20:42 Diabetes panel 07/09/17 Range/Units 00:44 Sodium 138 (136-145) mEq/L Potassium 3.5 (3.5-5.1) mEq/L Chloride 109 H (98-107) mEq/L Carbon Dioxide 24 (23-29) mEq/L BUN 8 (6-20) mg/dL Creatinine 0.61 (0.60-1.20) mg/dL Glucose 88 (70-105) mg/dL Calcium 8.5 L (8.6-10.3) mg/dL Calcium panel 07/09/17 Range/Units 00:44 Calcium 8.5 L (8.6-10.3) mg/dL Pituitary panel 07/09/17 Range/Units 00:44 Sodium 138 (136-145) mEq/L Potassium 3.5 (3.5-5.1) mEq/L Chloride 109 H (98-107) mEq/L Carbon Dioxide 24 (23-29) mEq/L BUN 8 (6-20) mg/dL Creatinine 0.61 (0.60-1.20) mg/dL Glucose 88 (70-105) mg/dL Calcium 8.5 L (8.6-10.3) mg/dL Adrenal panel 07/09/17 Range/Units 00:44 Sodium 138 (136-145) mEq/L Potassium 3.5 (3.5-5.1) mEq/L Chloride 109 H (98-107) mEq/L Carbon Dioxide 24 (23-29) mEq/L BUN 8 (6-20) mg/dL Creatinine 0.61 (0.60-1.20) mg/dL Glucose 88 (70-105) mg/dL Calcium 8.5 L (8.6-10.3) mg/dL All other labs normal. Consult Discharge Plan - Plan Referrals: NONE,PCP [Primary Care Provider] - <Abimael Hamilton - Last Filed: 07/09/17 17:12> Date of Encounter: 07/09/17 Review of Systems All systems PM: The remainder of the systems were reviewed and are negative General Surgery Exam Initial Vital Signs Temp Pulse Resp BP Pulse Ox 98.2 F 120 20 179/102 98 07/08/17 20:17 07/08/17 20:17 07/08/17 20:17 07/08/17 20:17 07/08/17 20:17 Exam Initial Vital Signs Temp Pulse Resp BP Pulse Ox 98.2 F 120 20 179/102 98 07/08/17 20:17 07/08/17 20:17 07/08/17 20:17 07/08/17 20:17 07/08/17 20:17 Results - Labs 07/09/17 00:44 07/09/17 00:44 Abnormal lab results RBC 3.53 M/mcL (3.82-4.97) L 07/09/17 00:44 Hgb 10.8 g/dL (11.5-15.4) L 07/09/17 00:44 Hct 32.4 % (35.3-44.9) L 07/09/17 00:44 Chloride 109 mEq/L (98-107) H 07/09/17 00:44 Calcium 8.5 mg/dL (8.6-10.3) L 07/09/17 00:44 Globulin 3.7 g/dL (2.4-3.5) H 07/08/17 21:29 Albumin/Globulin Ratio 1.0 (1.1-2.2) L 07/08/17 21:29 25-OH Vitamin D Total 13 ng/mL (30-80) L 07/09/17 00:44 Urine Clarity Hazy (Clear) A 07/08/17 20:42 Ur Leukocyte Esterase Moderate (Negative) H 07/08/17 20:42 Urine Microscopic WBC 30-50 per hpf (0-3) H 07/08/17 20:42 Ur Squamous Epith Cells Many per lpf (None-Few) H 07/08/17 20:42 Ur Culture Indicated? NO. (NO) A 07/08/17 20:42 All other labs normal. - Attending Attestation I examined this patient and my medical decision-making was reviewed with the Resident Physician. I agree with the documented findings, disposition and treatment plan as described except to the extent set forth below. I reviewed the above assessment and evaluation and agree with the above plan. Patient with symptoms of abdominal pain but denies any nausea or vomiting. CT scan shows evidence of slight dilation of the small bowel with copious amounts of stool throughout the entire colon. I believe her symptoms are secondary to obstipation. Currently on examination she has less abdominal pain and no palpable masses noted. Agree with molasses enemas as well as GoLYTELY/MiraLAX Gatorade help clear away the stool. Agree with clear liquids and advance once the patient's bowel movements start to occur.
[2017-07-09] MEDS ORDERED: Polyethylene Glycol 3350 255 GM POWDER PO ONE (10:03)
[2017-07-09] MEDS ORDERED: Milk and Molasses Enema 200 ML RC ONE ×2 (10:03→20:00)
--- NOTE | 2017-07-09 15:51 | Internal Med Progress Note ---
Date of Encounter: 07/09/17 Time of Encounter: 15:47 - Assessment and plan (1) Tobacco abuse Current Visit: Yes Status: Chronic Assessment and plan: cessation. (2) Colitis Current Visit: Yes Status: Acute Assessment and plan: Continue ciprofloxacin and Flagyl IV antibiotics. (3) Constipation Current Visit: Yes Status: Acute Assessment and plan: Abdomen and pelvis CAT scan showed large amount of stool in the colon. Unable to complete small bowel follow-through secondary to contrast and stool load General surgery treating constipation versus ileus versus obstruction. Diet as per their instructions which are clears after bowel movements and then advance as tolerated. Qualifiers: Constipation type: unspecified constipation type Qualified Code(s): K59.00 - Constipation, unspecified (4) Ileus Current Visit: Yes Status: Acute Assessment and plan: Abdomen CT shows focal fluid dilation of small bowel nonspecific possible ileus , possible obstruction. Unable to complete small bowel follow-through secondary to stool load and contrast from previous test Diet per general surgery (5) Lumbar vertebral fracture Current Visit: Yes Status: Acute Assessment and plan: Patient with 5 days history of left lower back pain. No history of trauma. Abdomen CT done 07/03/17 and 07/09/17 with different views regarding chronicity of fracture of L1 . MRI of the lumbar spine reviewed Spine surgery evaluation pending Pain control. Qualifiers: Encounter type: initial encounter Lumbar vertebra fracture level: L1 Fracture type: closed Fracture morphology: unspecified fracture morphology Qualified Code(s): S32.019A - Unspecified fracture of first lumbar vertebra, initial encounter for closed fracture (6) Hypokalemia Current Visit: Yes Status: Acute Assessment and plan: replaced , normalized (7) Leukocytosis Current Visit: Yes Status: Acute Assessment and plan: Normalized Continue cipro and flagyl IV continue to monitor Qualifiers: Leukocytosis type: unspecified Qualified Code(s): D72.829 - Elevated white blood cell count, unspecified - Time Spent With Patient Total time spent is greater than 50% in coordination of care (as documented) at patient's floor/unit and/or counseling patient: - Subjective Interval history: Patient lying in bed and does not feel well. She is very dry and requesting something to drink. Discussed that as per general surgery's realm. Explained findings on her testing with a lot of stool and ileus versus obstruction. I stated she would need to be cleaned out. She is still having some back pain. Denies any other complaints. - Constitutional Vitals: Temp Pulse Resp BP Pulse Ox 97.9 F 75 16 137/78 97 07/09/17 15:15 07/09/17 15:15 07/09/17 15:15 07/09/17 15:15 07/09/17 15:15 General appearance: Present: cachectic, cooperative, mild distress (mild painful distress), pleasant, answers questions appropriately - Head Head exam: Present: atraumatic, normocephalic - Eye Eye exam: Present: PERRL, conjuntiva pink, sclera anicteric Pupils: Present: PERRL - Neck Neck exam general surgery: Present: supple, trachea midline. Absent: lymphadenopathy - Respiratory Respiratory exam: Present: decreased breath sounds, CTAB. Absent: accessory muscle use, rales, rhonchi, wheezes - Cardiovascular Cardiovascular exam: Present: RRR, +S1, +S2. Absent: diastolic murmur, gallop, rubs, systolic murmur - GI/Abdominal GI/Abdominal exam: Present: normal bowel sounds, soft, no peritoneal signs. Absent: distended, tenderness - Extremities Exam Extremities exam: Present: warm, radial pulses palpable and symmetrical. Absent : calf tenderness, cyanotic, pedal edema - Neurological Exam Neurological exam: Present: alert, CN II-XII intact, oriented X3, no focal deficits. Absent: pronater drift, facial droop, speech deficit - Skin Skin exam: Present: dry, intact, normal color, warm Internal Medicine: Result - Labs CBC & Chem 7: 07/09/17 00:44 07/09/17 00:44 - ABG Interpretation ABG results: PT/INR, D-dimer PT 11.7 Seconds (9.4-12.1) 07/08/17 21:29 - Impressions Impressions Lumbar Spine MRI 07/09/17 23:55 IMPRESSION: Acute to subacute fracture of L1 with loss of 40% of the vertebral height. The fracture etiology is nonspecific and may potentially be pathologic. There are mild heterogeneous changes within the marrow elements. A more focal low signal lesion is identified within the L4 vertebral body. These changes are suggestive of metastatic disease. Bone scan may be of value for further evaluation. D/ / 07/09/2017 11:09:32 Ishan Morrissey MD / louie Interpreting Provider: Ishan Morrissey MD Consult Discharge Plan - Plan Referrals: NONE,PCP [Primary Care Provider] -
--- NOTE | 2017-07-09 16:53 | Pain Management Consultation ---
Date of Encounter: 07/09/17 Time of Encounter: 17:15 Assessment and Plan (1) Lumbar compression fracture Current Visit: Yes Status: Acute This patient has a 1 week old L1 compression deformity by history. MRI and CT scan show a relatively subacute pattern of L1 fracture. There is no major impingement on the central canal. The patient currently denies use of illicit opioid, but this is her subjective report. Recommend the followin. Continue when necessary opioid while admitted to the hospital. I would not recommend discharging her on oral opioids. 2. Recommend consultation by PT and occupational therapy for functional evaluation and ambulation therapy. 3. Recommend TLSO bracing. 3A. recommend inpatient or outpatient rehabilitation depending on the patient's social situation. 4. [place], the patient would have to fail 6 weeks of conservative care for kyphoplasty to be a consideration. I think that her fracture represents a pathological one because there is not a clear traumatic episode. I doubt some ceiling tiles falling on her could cause such a fracture if she did not have low bone density specifically at L1. 5. The patient should be scheduled with me in the clinic in 5 weeks' time for the situation to be reevaluated; at that time, we can consider kyphoplasty repair if she is still in pain. 6. Recommend bone scan and DEXA scanning to look for an underlying cause of her fracture. 7. Recommend urine drug screening to screen for illicit substances. The assessment and plan as outlined above was discussed with the patient and/or family members who expressed understanding and agreement. All questions were answered. Qualifiers: Encounter type: initial encounter Lumbar vertebra fracture level: L1 Fracture type: closed Qualified Code(s): S32.010A - Wedge compression fracture of first lumbar vertebra, initial encounter for closed fracture History of Present Illness Chief complaint: back pain HPI: Ms. Celeste is a 51 year old female who has had low back pain for the past 1 week. She states that she was at a friend's house when the ceiling fell on her. To be more specific, part of the ceiling fell on her. She describes the total weight of the following debris as 30 pounds. Since that time she has had pain in the lower back. The debris hit her upper shoulder area. She feels the pain in the center of her back, 10/10. The pain does not radiate into her abdomen or legs. She has difficulty walking and standing secondary to the pain. She denies a history of osteoporosis or cancer. She was an IV drug user in the past. She was maintained on Suboxone for a period of time, but she stopped it because she, "no longer uses drugs". Past Med Surg Social Fam HX - Past Medical History Medical history: kidney stones Psychiatric history: anxiety, depression - Past Surgical History Surgical History: non-contributory - Social History Smoking Status: Current every day smoker Packs per day: 1 Smokeless Tobacco Status: No Alcohol use: none Drug use: marijuana - Family History Mother Hx Family Cardiac Disorders: Yes (Stroke) Sister Hx Family Cancer: Yes (colon) Medications and Allergies Ciprofloxacin [Cipro] 500 mg PO BID 14 Days #28 tablet 07/03/17 [Rx] Ibuprofen [Motrin] 600 mg PO Q8HR PRN #20 tab 07/03/17 [Rx] metroNIDAZOLE [Flagyl] 500 mg PO TID #42 tablet 07/03/17 [Rx] 3 Allergy/AdvReac Type Severity Reaction Status Date / Time morphine Allergy Rash Verified 07/08/17 22:18 Review of Systems - Constitutional Constitutional ROS IM: no photophobia, no phonophobia, no daytime sleepiness, no fever(s), no stops breathing during sleep - EENT Nose, mouth and throat: no headache(s), no neck pain, no neck trauma - Cardiovascular Cardiovascular ROS: no chest pain, no leg edema, no lightheadedness - Respiratory Respiratory: no pain on inspiration, no pain with cough - Gastrointestinal Gastrointestinal: no abdominal pain, no constipation, no diarrhea, no heartburn - Genitourinary Genitourinary ROS: no difficulty urinating, no flank pain, no urinary hesitancy - Musculoskeletal Musculoskeletal ROS: no muscle weakness, no numbness, no radiating pain into limb, no tingling - Integumentary Integumentary: no erythema, no lesions, no swelling - Neurological Neurological ROS: no abnormal gait, no behavioral changes, no focal weakness, no radicular pain - Psychiatric Psychiatric general: no anxiety, no confusion, no depression - Hematologic/Lymphatic Hematologic/Lymphatic pediatric: no easy bleeding, no easy bruising Physical Exam Initial Vital Signs Temp Pulse Resp BP Pulse Ox 98.2 F 120 20 179/102 98 07/08/17 20:17 07/08/17 20:17 07/08/17 20:17 07/08/17 20:17 07/08/17 20:17 - Additional Findings EYES:: pupils equal and round, no myosis. SKIN:: Multiple areas of excoriation and skin breakdown on upper limbs and to a greater extent on the lower limbs. CARDIOVASCULAR:: regular rate and rhythm, no murmurs PULMONARY:: lung hernandes clear to auscultation bilaterally. Quiet, normal respiratory pattern. GASTROINTESTINAL:: Reduced bowel sounds. Full abdomen. MUSCULOSKELETAL INSPECTION:: no surgical scarring in lumbar area. PALPATION:: paraspinous musculature is tender to deep palpation in the lumbar area bilaterally. ROM:: reduced in lumbar spine STRENGTH:: RIGHT hip flexors: 5/5 :: LEFT hip flexors: 5/5 RIGHT hip adduction 5/5 :: LEFT hip adduction 5/5 RIGHT hip abduction 5/5 :: LEFT hip abduction 5/5 RIGHT knee extension 5/5 :: LEFT knee extension 5/5 RIGHT knee flexion 5/5 :: LEFT knee flexion 5/5 RIGHT ankle dorsiflexion 5/5 :: LEFT ankle dorsiflexion 5/5 RIGHT ankle plantarflexion 5/5 :: LEFT ankle plantarflexion 5/5 RIGHT great toe dorsiflexion 5/5 :: LEFT great toe dorsiflexion 5/5 RIGHT great toe plantarflexion 5/5 :: LEFT great toe plantarflexion 5/5 STRAIGHT LEG RAISE:: LLE is negative at 120 degrees. RLE is negative at 120 degrees. NEUROLOGIC SENSATION:: hypesthesia is not noted in lower extremity dermatomes. SIGNS OF NEUROVASCULAR COMPRESSION Atrophy:: present in UE and LE musculature. Overall reduced body mass. Fasciculation:: not present in UE or LE musculature PSYCHIATRIC:: ORIENTATION:: awake and alert. INSIGHT:: poor awareness of illness. Denies drug abuse now. AFFECT:: pleasant. Radiology Images Viewed By Me:: June 2017 CT scan of the lumbar spine shows an L1 compression deformity with a small retropulsed superior endplate fragment. The fracture planes are well- defined and therefore look more acute. Radiology reports reviewed by me:: June 2017 MRI of the lumbar spine shows subacute appearance of L1 compression deformity. There is 40% vertebral body height loss. I have reviewed and agree with information documented in the scribed documentation, ROS, patient medications, allergies, medical history, surgical history, social history, and family history. Results - Labs 07/09/17 00:44 07/09/17 00:44 Abnormal lab results RBC 3.53 M/mcL (3.82-4.97) L 07/09/17 00:44 Hgb 10.8 g/dL (11.5-15.4) L 07/09/17 00:44 Hct 32.4 % (35.3-44.9) L 07/09/17 00:44 Chloride 109 mEq/L (98-107) H 07/09/17 00:44 Calcium 8.5 mg/dL (8.6-10.3) L 07/09/17 00:44 Globulin 3.7 g/dL (2.4-3.5) H 07/08/17 21:29 Albumin/Globulin Ratio 1.0 (1.1-2.2) L 07/08/17 21:29 25-OH Vitamin D Total 13 ng/mL (30-80) L 07/09/17 00:44 Urine Clarity Hazy (Clear) A 07/08/17 20:42 Ur Leukocyte Esterase Moderate (Negative) H 07/08/17 20:42 Urine Microscopic WBC 30-50 per hpf (0-3) H 07/08/17 20:42 Ur Squamous Epith Cells Many per lpf (None-Few) H 07/08/17 20:42 Ur Culture Indicated? NO. (NO) A 07/08/17 20:42 All other labs normal. Consult Discharge Plan - Plan Referrals: NONE,PCP [Primary Care Provider] -
[2017-07-10] MEDS: OXYCODONE Oral CONC 10 MG/0.5 ML ORAL.SYG SL PRN ×2 (02:42→07:56)
[2017-07-10] MEDS: Ketorolac 15 MG/ML VIAL IVP PRN ×3 (04:13→19:35)
[2017-07-10] MEDS: MetroNIDAZOLE 500 MG/100 ML 500 MG/100 ML BAG IVPB SCH ×3 (07:56→23:28)
[2017-07-10] MEDS ORDERED: Milk and Molasses Enema 200 ML RC ONE (08:01)
[2017-07-10] MEDS: Lactulose Oral Soln 20 GM/30 ML UDC PO SCH ×2 (08:53→19:25)
--- NOTE | 2017-07-10 12:20 | Internal Med Progress Note ---
Date of Encounter: 07/10/17 Time of Encounter: 12:18 - Assessment and plan (1) Tobacco abuse Current Visit: Yes Status: Chronic Assessment and plan: cessation education. (2) Colitis Current Visit: Yes Status: Acute Assessment and plan: Continue ciprofloxacin and Flagyl IV (3) Constipation Current Visit: Yes Status: Acute Assessment and plan: Abdomen and pelvis CAT scan showed large amount of stool in the colon. Unable to complete small bowel follow-through secondary to contrast and stool load General surgery treating constipation Ileus and small bowel obstruction ruled out. She had a large bowel movement this morning after a second enema was given and lactulose oral Advance diet as tolerated. Qualifiers: Constipation type: unspecified constipation type Qualified Code(s): K59.00 - Constipation, unspecified (4) Ileus Current Visit: Yes Status: Acute Assessment and plan: Abdomen CT shows focal fluid dilation of small bowel nonspecific possible ileus , possible obstruction. General surgery followed and states no ileus no obstruction Constipation with backup to the small bowel. Tolerating diet No need for small bowel follow-through (5) Lumbar vertebral fracture Current Visit: Yes Status: Acute Assessment and plan: Patient with 5 days history of left lower back pain. No history of trauma. Abdomen CT done 07/03/17 and 07/09/17 with different views regarding chronicity of fracture of L1 . MRI of the lumbar spine reviewed Patient was seen by pain service She denies illicit opioid but urine tox screen was resulted positive for barbiturates, amphetamines, and benzodiazepine Recommendations from pain service are TLSO bracing Rehabilitation depending on patient's social situation Follow-up in the clinic in 5 weeks Bone scan and DEXA scanning to look for underlying cause of her fractures which can be done as an outpatient Continue opioid inpatient but do not discharge on oral opioids Pain control. Qualifiers: Encounter type: initial encounter Lumbar vertebra fracture level: L1 Fracture type: closed Fracture morphology: unspecified fracture morphology Qualified Code(s): S32.019A - Unspecified fracture of first lumbar vertebra, initial encounter for closed fracture (6) Hypokalemia Current Visit: Yes Status: Acute Assessment and plan: replaced and normalized (7) Leukocytosis Current Visit: Yes Status: Resolved Assessment and plan: normalized Qualifiers: Leukocytosis type: unspecified Qualified Code(s): D72.829 - Elevated white blood cell count, unspecified - Time Spent With Patient Total time spent is greater than 50% in coordination of care (as documented) at patient's floor/unit and/or counseling patient: - Subjective Interval history: Patient lying in bed and still does not feel like herself. She states her back hurts to take a break breath and I told her I understood that. She had refused her treatment for constipation last meeting. I told her that she was here for constipation and felt lousy because stool is back into the small intestine and she needed to do what we were ordering for her. She stated that she would. Also told her we are checking a urine drug screen and that a TLSO brace is pending for her back pain.. - Constitutional Vitals: Temp Pulse Resp BP Pulse Ox 98.9 F 72 14 154/92 96 07/10/17 11:22 07/10/17 11:22 07/10/17 11:22 07/10/17 11:22 07/10/17 11:22 General appearance: Present: cachectic, cooperative, disheveled, mild distress ( mild painful distress), answers questions appropriately - Head Head exam: Present: atraumatic, normocephalic - Eye Eye exam: Present: PERRL, conjuntiva pink, sclera anicteric Pupils: Present: PERRL - Neck Neck exam general surgery: Present: supple, trachea midline. Absent: lymphadenopathy - Respiratory Respiratory exam: Present: decreased breath sounds. Absent: accessory muscle use, rales, rhonchi, wheezes - Cardiovascular Cardiovascular exam: Present: RRR, +S1, +S2. Absent: diastolic murmur, gallop, rubs, systolic murmur - GI/Abdominal GI/Abdominal exam: Present: normal bowel sounds, soft, no peritoneal signs. Absent: distended, tenderness - Extremities Exam Extremities exam: Present: warm, radial pulses palpable and symmetrical. Absent : calf tenderness, cyanotic, pedal edema - Neurological Exam Neurological exam: Present: alert, CN II-XII intact, oriented X3, no focal deficits. Absent: pronater drift, facial droop, speech deficit - Skin Skin exam: Present: dry, normal color, warm Additional comments: Symptoms scratched scabs on both lower extremities that she states are chronic for her from itching Internal Medicine: Result - Labs CBC & Chem 7: 07/09/17 00:44 07/09/17 00:44 - ABG Interpretation ABG results: PT/INR, D-dimer PT 11.7 Seconds (9.4-12.1) 07/08/17 21:29 Consult Discharge Plan - Plan Referrals: NONE,PCP [Primary Care Provider] -
[2017-07-10 12:22] LABS: Amphetamine Screen,Urine Positive ng/mL (Cutoff=1000); Barbiturate Screen,Urine Positive ng/mL (Cutoff=200); Benzodiazepines Screen,Urine Positive ng/mL (Cutoff=200); Cannabinoid Screen,Urine Negative ng/mL (Cutoff = 50); Cocaine Screen,Urine Negative ng/mL (Cutoff= 300); Opiate Screen,Urine Negative ng/mL (Cutoff=300); Phencyclidine Screen,Urine Negative ng/mL (Cutoff=25)
[2017-07-10] MEDS ORDERED: Lactulose Oral Soln 20 GM/30 ML UDC PO ONE (12:41)
[2017-07-10] MEDS: *HR* OxyCODONE/APAP 5/325 TABLET PO PRN (15:30)
--- NOTE | 2017-07-10 16:19 | General Surgery Progress Note ---
<FarheenalvaroMukesh - Last Filed: 07/10/17 17:50> Date of Encounter: 07/10/17 Time of Encounter: 09:15 - Assessment and Plan (1) Constipation Current Visit: Yes Status: Acute Pt with large amounts of stool in Colon on CT scan, backing up into the small intestine. No signs of obstruction Exam is benign. presentation most consistent with constipation. May be related to opioid use. Hx of Opioid abuse and Suboxone treatment. Patient had large bowel movement this morning after second enema. Patient reports abd pain much better after bowel movement. Still mildly tender to palpation will chart check tomorrow to make sure patient continues to improve. Plan: Clear liquid diet once patient begins to move her bowels well can advance diet as tolerated COntinue Zofran PRN for Nausea continue pain control. Qualifiers: Constipation type: unspecified constipation type Qualified Code(s): K59.00 - Constipation, unspecified (2) Lumbar vertebral fracture Current Visit: Yes Status: Acute Management per primary team Qualifiers: Encounter type: initial encounter Lumbar vertebra fracture level: L1 Fracture type: closed Fracture morphology: unspecified fracture morphology Qualified Code(s): S32.019A - Unspecified fracture of first lumbar vertebra, initial encounter for closed fracture Subjective Patient reports: no new complaints, feels better, tolerating liquids well, voiding w/o difficulty, flatus, bowel movement, afebrile Narrative: Pt had large bowel movement this morning after second enema, bowel prep, and lactulose. Patient reports feeling much better after bowel movement. Still a little tender much improved. Denies N, V, Fever, Chest Pain, SOB. Still having lots of back pain. Objective Vital Signs - Last 8 Hours Temp Pulse Resp BP Pulse Ox 07/10/17 16:13 99 F 86 16 129/68 98 07/10/17 11:22 98.9 F 72 14 154/92 96 Intake and Output 07/10/17 07/10/17 07/10/17 07:59 15:59 23:59 Intake Total 100 / 100 420 / 420 Balance 100 / 100 420 / 420 Intake: IV Fluids 100 / 100 300 / 300 Cipro Premix 400 MG/200 ML 400 200 / 200 mg In 200 ml @ 200 mls/hr IVPB Q12HR [facility] Rx#:[id number] Flagyl Premix 500 MG/100 ML 500 100 / 100 100 / 100 mg In 100 ml @ 100 mls/hr IVPB Q8HR [facility] Rx#:[id number] Oral 120 / 120 Other: Meal Lunch Percent of Meal Consumed 80% Stool Size Small Stool Consistency soft Stool Color Brown # Voids 1 - General physical appearance well developed, no distress, moderate pain - Eyes normal ocular movement - ENT normal mucosa - Neck Neck exam: trachea midline - Respiratory normal expansion, normal respiratory effort, clear to auscultation - Cardiovascular Cardiovascular exam: Present: RRR, no murmurs/rubs/gallops - Abdomen Abdomen: Present: bowel sounds present, soft, tender (mildly) Abdominal Tenderness: diffusely - Integumentary no abnormal pigmentation - Neurologic CN 2-12 grossly intact - Musculoskeletal normal posture - Psychiatric oriented to time, oriented to person, oriented to place, speech is normal, memory intact - Labs 07/09/17 00:44 07/09/17 00:44 Consult Discharge Plan - Plan Referrals: NONE,PCP [Primary Care Provider] - <Feliberto Pa - Last Filed: 07/10/17 22:45> Date of Encounter: 07/10/17 Objective Vital Signs - Last 8 Hours Temp Pulse Resp BP Pulse Ox 07/10/17 18:43 98.9 F 79 17 145/82 98 07/10/17 16:13 99 F 86 16 129/68 98 Intake and Output 07/10/17 07/10/17 07/10/17 07:59 15:59 23:59 Intake Total 100 / 100 420 / 420 1000 / 1000 Balance 100 / 100 420 / 420 1000 / 1000 Intake: IV Fluids 100 / 100 300 / 300 1000 / 1000 0.9 % Sodium Chloride 1,000 ML 1000 / 1000 @ 75 mls/hr IVC .[id number] [facility] Rx #:[id number] Cipro Premix 400 MG/200 ML 400 200 / 200 mg In 200 ml @ 200 mls/hr IVPB Q12HR [facility] Rx#:[id number] Flagyl Premix 500 MG/100 ML 500 100 / 100 100 / 100 mg In 100 ml @ 100 mls/hr IVPB Q8HR [facility] Rx#:[id number] Oral 120 / 120 Other: Meal Lunch Percent of Meal Consumed 80% Stool Size Small Stool Consistency soft Stool Color Brown # Voids 1 - Labs 07/09/17 00:44 07/09/17 00:44 - Attending Attestation patient seen and examined. i have reviewed all imaging, labs, and notes, including this one. I agree with the above assessment and plan and wish to add the following... Patient with constipation; currently having bowel movements; general surgery will now sign off; please call with any new questions or concerns.
[2017-07-10] MEDS: 0.9 % Sodium Chloride 1,000 ML IVC SCH (17:45)
[2017-07-11] MEDS: *HR* OxyCODONE/APAP 5/325 TABLET PO PRN ×2 (01:44→10:10)
[2017-07-11] MEDS: Ketorolac 15 MG/ML VIAL IVP PRN (04:19)
[2017-07-11 07:20] VITALS: BP 148/78
[2017-07-11] MEDS: Lactulose Oral Soln 20 GM/30 ML UDC PO SCH (07:54)
[2017-07-11] MEDS: MetroNIDAZOLE 500 MG/100 ML 500 MG/100 ML BAG IVPB SCH (07:55)
--- NOTE | 2017-07-11 09:41 | Discharge Summary ---
- NOTES TO OUTPATIENT PROVIDER Notes to Outpatient Provider: Wear back brace as demonstrated, wear at all times. Tylenol and ibuprofen for back pain, no narcotics on discharge. Tobacco cessation, use money saved by not buying cigarettes to buy over-the- counter Tylenol ibuprofen and MiraLAX. Severe constipation resolved, use MiraLAX and avoid narcotics. Follow-up with Dr. Wilson in 5 weeks for evaluation of back pain and further treatment options Date of Encounter: 07/11/17 Time of Encounter: 09:39 - Discharge Diagnosis (1) Tobacco abuse Priority: Primary Status: Chronic Comments: Cessation was advised. Instructed patient with money she saved from not smoking she could buy her [id number] medications (2) Colitis Priority: Secondary Status: Inactive Comments: History of colitis not active on this admission (3) Constipation Priority: Primary Status: Acute Comments: Likely secondary to narcotic use, instructed on use of lactulose and MiraLAX to keep balls moving freely. Patient states she has no money to pay for any medications Qualifiers: Constipation type: drug induced constipation Qualified Code(s): K59.03 - Drug induced constipation (4) Ileus Priority: Primary Status: Ruled-out Comments: Ileus was ruled out by general surgery and problems were due to severe constipation with stool backed into the small bowel. This has been resolved with laxatives and enemas (5) Lumbar vertebral fracture Priority: Primary Status: Acute Comments: To follow-up with Dr. Wilson as an outpatient in 5 weeks for further evaluation and treatment options she is not a kyphoplasty candidate at this time Dr. Wilson recommends no opioids on discharge, control the pain with Motrin and Tylenol Wear back brace as instructed Qualifiers: Encounter type: initial encounter Lumbar vertebra fracture level: L1 Fracture type: closed Fracture morphology: unspecified fracture morphology Qualified Code(s): S32.019A - Unspecified fracture of first lumbar vertebra, initial encounter for closed fracture (6) Hypokalemia Priority: Primary Status: Resolved Comments: Replaced and normalized (7) Leukocytosis Priority: Primary Status: Resolved Comments: White count has normalized with no fever Qualifiers: Leukocytosis type: unspecified Qualified Code(s): D72.829 - Elevated white blood cell count, unspecified (8) Abdominal pain Priority: Primary Status: Resolved Comments: Secondary to severe constipation with no ileus or no obstruction Tolerating a regular diet on discharge with no nausea or vomiting Qualifiers: Abdominal location: generalized Qualified Code(s): R10.84 - Generalized abdominal pain (9) Malingerer Priority: Primary Status: Chronic Comments: Patient has manipulative behavior, tells different staff members different things and is not truthful about details such as her back brace was fitted last night and she stated nobody put it on. Stated she was told she would have to stay here for back surgery and clearly stated in the note that she will follow-up as an outpatient in 5 weeks for further evaluation of her back pain Told she was to be discharged on narcotics in the pain management/or the know clearly states no narcotics on discharge States she cannot afford any [id number] medicines and wants them provided although she continues to smoke and has no plans to stop. Hospital course: Ms. Celeste is a 51 year old female with past medical history of anxiety, depression, and chronic tobacco use, narcotic abuse, colitis, and likely malingering. She is to follow-up with Dr. Wilson in 5 weeks for further evaluation of her back and further treatment options. He recommended no further narcotics. He also recommended to wear a back brace as ordered. She shows drug-seeking tendencies and was severely constipated on admission. Tobacco cessation was advised and modalities to control her pain with nonnarcotics were discussed. She is not receptive. She will be discharged and follow-up instructions were discussed in detail. Please refer to the assessment and plan for further details of this admission Discharge discussed with: patient, nurse, heritage consultant Time spent discussing smoking cessation with patient: 3 to 10 minutes - Time Spent with Patient Total time spent providing and/or coordinating discharge services: Less than 30 minutes - Discharge Medications Prescriptions: Lactulose 10 gm PO DAILY PRN #240 mls PRN Reason: Constipation Polyethylene Glycol 3350 [MiraLAX Powder Bulk 17.9 Oz] 1 scoop PO DAILY #510 gm Home Medications: Ciprofloxacin [Cipro] 500 mg PO BID 14 Days #28 tablet 07/03/17 [Rx] Ibuprofen [Motrin] 600 mg PO Q8HR PRN #20 tab 07/03/17 [Rx] metroNIDAZOLE [Flagyl] 500 mg PO TID #42 tablet 07/03/17 [Rx] Lactulose 10 gm PO DAILY PRN #240 mls 07/11/17 [Rx] Polyethylene Glycol 3350 [MiraLAX Powder Bulk 17.9 Oz] 1 scoop PO DAILY #510 gm 07/11/17 [Rx] Allergies/Adverse Reactions: 3 Allergy/AdvReac Type Severity Reaction Status Date / Time morphine Allergy Rash Verified 07/08/17 22:18 Date of admission: 07/09/17 10:53 Primary care physician: PCP NONE Consults: 07/10/17 07:56 Consult to Pain Management [CONS] Routine Consulting Provider: Pain Mgt Interventional [facility] Reason for Consult: back pain Time Notified: 07:59 Call Completed: Yes Discharging clinician: Kareen Montoya Anticipated date of discharge: 07/11/17 - Constitutional Vitals: Temp Pulse Resp BP Pulse Ox 98.7 F 75 16 148/78 96 07/11/17 07:19 07/11/17 07:19 07/11/17 07:19 07/11/17 07:19 07/11/17 07:19 General appearance: Present: cachectic, disheveled, no acute distress, answers questions appropriately - Head Head exam: Present: atraumatic, normocephalic - Eye Eye exam: Present: PERRL, conjuntiva pink, sclera anicteric Pupils: Present: PERRL - Neck Neck exam general surgery: Present: supple, trachea midline. Absent: lymphadenopathy - Respiratory Respiratory exam: Present: decreased breath sounds, CTAB. Absent: accessory muscle use, rales, rhonchi, wheezes Additional comments: Poor inspiratory effort - Cardiovascular Cardiovascular exam: Present: RRR, +S1, +S2. Absent: diastolic murmur, gallop, rubs, systolic murmur - GI/Abdominal GI/Abdominal exam: Present: normal bowel sounds, soft, no peritoneal signs. Absent: distended, guarding, tenderness - Extremities Exam Extremities exam: Present: warm, radial pulses palpable and symmetrical. Absent : calf tenderness, cyanotic, pedal edema - Neurological Exam Neurological exam: Present: alert, CN II-XII intact, oriented X3, no focal deficits. Absent: pronater drift, facial droop, speech deficit - Skin Skin exam: Present: dry, intact, normal color, warm - Patient Status Disposition: Home, Self-Care Condition: Good Functional capacity at discharge: independent ambulation Overall status at discharge: patient is progressing back to baseline - Discharge Instructions Follow Up With: NONE,PCP [Primary Care Provider] - Additional Instructions: Follow-up with Dr. Wilson in 5 weeks, wear back brace when out of bed as instructed - Diet and Activity Activity: increase activity as tolerated Diet: advance to your usual diet
== END 2017-07-11 11:00 | disposition home or self-care (01) | DRG 392 ==
LOC: EMEROO 20:16 → 3BNU 20:16
PROVIDERS: ADMIT Internal Medicine Cardiovascular Disease; ATTEND Internal Medicine Cardiovascular Disease

== ENCOUNTER 2019-01-04 15:53 | Inpatient (IN) ==
[2019-01-04] MEDS ORDERED: Piperacillin/Tazobactam 3.375 GM in 0.9 % Sodium Chloride Mini Bag 100 ML IVPB ONE (16:49)
[2019-01-04] MEDS ORDERED: 0.9 % Sodium Chloride 1,000 ML IVC ONE (16:49)
[2019-01-04 17:40] LABS: Bilirubin,Urine Small (Negative); Blood,Urine Trace-intact (Negative); Clarity,Urine Clear (Clear); Color,Urine Yellow (Yellow); Glucose,Urine (UA) Normal (Normal); Ketones,Urine Trace mg/dL (Negative); Leukocyte Esterase,Urine Negative (Negative); Nitrite,Urine Negative (Negative); PH,Urine 5.5 pH Units (5.0-8.0); Protein,Urine Trace mg/dL (Neg-Trace); Specific Gravity,Urine 1.015 (1.010-1.025)
[2019-01-04 17:47] LABS: Bacteria,Urine None Seen per hpf (None-Few); Squamous Epithelial Cell,Urine Many per lpf (None-Few)
[2019-01-04 18:17] LABS: Basophils # 0.1 K/mcL (0.0-0.2); Basophils % 0.5 %; Eosinophils # 0.2 K/mcL (0.0-0.6); Eosinophils % 1.2 %; Hematocrit 34.7 % (35.3-44.9); Immature Granulocytes % 0.5 % (0-4); Lymphocytes # 3.9 K/mcL (0.6-4.6); Lymphocytes % 25.4 %; Mean Corpuscular HGB Conc 31.7 g/dL (31.6-35.5); Mean Corpuscular Volume 94.6 fL (83.0-100.0); Mean Platelet Volume 9.8 fL (9.4-12.4); Monocytes # 1.2 K/mcL (0.0-1.3); Monocytes % 7.7 %; Platelet Count 320 K/mcL (140-400); Red Blood Count 3.67 M/mcL (3.82-4.97); Red Cell Distribution Width 13.8 % (11.5-14.5); Segmented Neutrophils % 64.7 %; White Blood Count 15.5 K/mcL (4.3-11.1)
[2019-01-04] MEDS ORDERED: *HR* HYDROmorphone (PF) 1 MG/ML SYRINGE IVP ONE (18:39)
[2019-01-04 18:43] LABS: BUN/Creatinine Ratio 15 (6-26); Blood Urea Nitrogen 15 mg/dL (6-20); C-Reactive Protein 189 mg/L (Less than 10); Calcium 7.8 mg/dL (8.6-10.3); Carbon Dioxide 28 mEq/L (23-29); Chloride 100 mEq/L (98-107); Glucose 95 mg/dL (70-105); Osmolality,Calculated 287 (280-300); Potassium 2.5 mEq/L (3.5-5.1); Sodium 138 mEq/L (136-145); eGFR For African Americans > 60 (> 60); eGFR For Non-African Americans 60 (> 60)
[2019-01-04 18:49] LABS: INR 1.1; Prothrombin Time 12.9 Seconds (9.4-12.1)
[2019-01-04 19:07] LABS: Creatine Kinase 105 Units/L (30-223)
[2019-01-04] MEDS ORDERED: Isovue-370 500 ML BOTTLE IVP ONE (19:07)
[2019-01-04] MEDS ORDERED: Naloxone 0.4 MG/ML INJ IVP PRN (23:38)
[2019-01-04] MEDS ORDERED: Ringers Solution, Lactated 1,000 ML IVC SCH (23:45)
[2019-01-04] MEDS ORDERED: Potassium Chloride Elixir 20 MEQ/15 ML UDC PO ONE (23:50)
[2019-01-05 01:33] LABS: Basophils # 0.1 K/mcL (0.0-0.2); Basophils % 0.5 %; Eosinophils # 0.2 K/mcL (0.0-0.6); Eosinophils % 1.8 %; Hematocrit 29.3 % (35.3-44.9); Hemoglobin 9.6 g/dL (11.5-15.4); Immature Granulocytes % 0.4 % (0-4); Lymphocytes % 27.2 %; Mean Corpuscular HGB Conc 32.8 g/dL (31.6-35.5); Mean Corpuscular Hemoglobin 31.3 pg (28.0-33.3); Mean Corpuscular Volume 95.4 fL (83.0-100.0); Mean Platelet Volume 9.5 fL (9.4-12.4); Monocytes # 0.8 K/mcL (0.0-1.3); Monocytes % 7.2 %; Platelet Count 320 K/mcL (140-400); Red Blood Count 3.07 M/mcL (3.82-4.97); Red Cell Distribution Width 13.8 % (11.5-14.5); Segmented Neutrophils % 62.9 %; White Blood Count 11.2 K/mcL (4.3-11.1)
[2019-01-05 01:37] LABS: INR 1.2; Prothrombin Time 13.1 Seconds (9.4-12.1)
[2019-01-05 01:49] LABS: Alanine Aminotransferase 14 Units/L (7-52); Albumin 2.5 g/dL (3.5-5.7); Albumin/Globulin Ratio 0.7 (1.1-2.2); Alkaline Phosphatase 65 Units/L (34-104); Aspartate Amino Transferase 17 Units/L (13-39); BUN/Creatinine Ratio 14 (6-26); Bilirubin,Total 0.4 mg/dL (0.3-1.0); Blood Urea Nitrogen 12 mg/dL (6-20); Calcium 7.2 mg/dL (8.6-10.3); Carbon Dioxide 28 mEq/L (23-29); Chloride 106 mEq/L (98-107); Globulin 3.4 g/dL (2.4-3.5); Glucose 130 mg/dL (70-105); Osmolality,Calculated 290 (280-300); Potassium 2.9 mEq/L (3.5-5.1); Sodium 139 mEq/L (136-145); Total Protein 5.9 g/dL (6.4-8.9); eGFR For African Americans > 60 (> 60); eGFR For Non-African Americans > 60 (> 60)
[2019-01-05] MEDS ORDERED: Ketorolac 15 MG/ML VIAL IVP ONE (03:36)
[2019-01-05] MEDS: *HR* Heparin 5,000 UNIT/ML VIAL SQ SCH ×3 (05:06→20:45)
[2019-01-05] MEDS: Vitamin B Complex/Vit C/Vit E 1 EACH TABLET PO SCH (08:23)
[2019-01-05] MEDS: Cyanocobalamin (B-12) 1,000 MCG TABLET PO SCH (08:23)
[2019-01-05] MEDS: Folic Acid 1 MG TABLET PO SCH (08:23)
[2019-01-05] MEDS: Thiamine (B-1) 100 MG TABLET PO SCH (08:23)
[2019-01-05] MEDS: Nicotine 14 MG PATCH.TD24 TD SCH (08:56)
[2019-01-05] MEDS: Piperacillin/Tazobactam 3.375 GM in 0.9 % Sodium Chloride Mini Bag 100 ML IVPB SCH ×3 (08:56→23:50)
[2019-01-05] MEDS ORDERED: 0.9 % Sodium Chloride 1,000 ML IVC SCH (10:45)
[2019-01-05 23:06] LABS: Bilirubin,Urine Negative (Negative); Blood,Urine Negative (Negative); Clarity,Urine Clear (Clear); Color,Urine Yellow (Yellow); Glucose,Urine (UA) Normal (Normal); Ketones,Urine Negative (Negative); Leukocyte Esterase,Urine Negative (Negative); Nitrite,Urine Negative (Negative); PH,Urine 6.5 pH Units (5.0-8.0); Protein,Urine Negative (Neg-Trace); Specific Gravity,Urine 1.017 (1.010-1.025); Urobilinogen,Urine >=8.0 mg/dL (Normal)
[2019-01-06 04:02] LABS: Amphetamine Screen,Urine Negative ng/mL (Cutoff=1000); Barbiturate Screen,Urine Negative ng/mL (Cutoff=200); Benzodiazepines Screen,Urine Negative ng/mL (Cutoff=200); Cannabinoid Screen,Urine Negative ng/mL (Cutoff = 50); Cocaine Screen,Urine Negative ng/mL (Cutoff= 300); Opiate Screen,Urine Negative ng/mL (Cutoff=300); Phencyclidine Screen,Urine Negative ng/mL (Cutoff=25)
[2019-01-06] MEDS: *HR* Heparin 5,000 UNIT/ML VIAL SQ SCH ×3 (04:43→23:53)
[2019-01-06 05:10] LABS: Basophils # 0.1 K/mcL (0.0-0.2); Basophils % 0.8 %; Eosinophils # 0.2 K/mcL (0.0-0.6); Eosinophils % 2.2 %; Hematocrit 29.6 % (35.3-44.9); Hemoglobin 9.3 g/dL (11.5-15.4); Immature Granulocytes % 0.6 % (0-4); Lymphocytes # 3.5 K/mcL (0.6-4.6); Lymphocytes % 38.9 %; Mean Corpuscular HGB Conc 31.4 g/dL (31.6-35.5); Mean Corpuscular Hemoglobin 30.2 pg (28.0-33.3); Mean Corpuscular Volume 96.1 fL (83.0-100.0); Mean Platelet Volume 9.6 fL (9.4-12.4); Monocytes # 0.8 K/mcL (0.0-1.3); Neutrophils # 4.4 K/mcL (1.6-8.9); Platelet Count 339 K/mcL (140-400); Red Blood Count 3.08 M/mcL (3.82-4.97); Red Cell Distribution Width 14.1 % (11.5-14.5); Segmented Neutrophils % 48.5 %
[2019-01-06 05:28] LABS: BUN/Creatinine Ratio 9 (6-26); Blood Urea Nitrogen 8 mg/dL (6-20); Calcium 7.2 mg/dL (8.6-10.3); Carbon Dioxide 26 mEq/L (23-29); Chloride 107 mEq/L (98-107); Glucose 101 mg/dL (70-105); Osmolality,Calculated 282 (280-300); Potassium 3.8 mEq/L (3.5-5.1); Sodium 137 mEq/L (136-145); eGFR For African Americans > 60 (> 60); eGFR For Non-African Americans > 60 (> 60)
[2019-01-06] MEDS: Thiamine (B-1) 100 MG TABLET PO SCH (08:22)
[2019-01-06] MEDS: Cyanocobalamin (B-12) 1,000 MCG TABLET PO SCH (08:22)
[2019-01-06] MEDS: Folic Acid 1 MG TABLET PO SCH (08:22)
[2019-01-06] MEDS: Piperacillin/Tazobactam 3.375 GM in 0.9 % Sodium Chloride Mini Bag 100 ML IVPB SCH ×2 (08:22→16:45)
[2019-01-06] MEDS: Nicotine 14 MG PATCH.TD24 TD SCH ×2 (08:22→12:06)
[2019-01-06] MEDS: Vitamin B Complex/Vit C/Vit E 1 EACH TABLET PO SCH (08:22)
[2019-01-06] MEDS ORDERED: *HR* Promethazine 25 MG/ML VIAL IVP PRN ×2 (18:28→21:01)
[2019-01-06] MEDS ORDERED: *HR* HYDROmorphone (PF) 1 MG/ML SYRINGE IVP PRN ×2 (18:28→21:01)
[2019-01-06] MEDS ORDERED: Ondansetron 4 MG/2 ML VIAL IVP ONE ×2 (18:28→21:01)
[2019-01-06] MEDS ORDERED: *HR* OxyCODONE Immed Rel 5 MG TABLET PO PRN (18:28)
[2019-01-06] MEDS ORDERED: Ondansetron 4 MG/2 ML VIAL ONE ×2 (18:42→19:32)
[2019-01-06] MEDS ORDERED: *HR* FentaNYL (PF) 100 MCG/2 ML VIAL ONE (18:42)
[2019-01-06] MEDS ORDERED: *HR* Midazolam HCl 2 MG/2 ML VIAL ONE (18:42)
[2019-01-06] MEDS ORDERED: Lidocaine -MPF 2% 2 ML VIAL ONE ×2 (18:42→18:43)
[2019-01-06] MEDS ORDERED: *HR* Propofol 200 MG/20 ML VIAL IVP ONE (18:43)
[2019-01-06] MEDS ORDERED: Dexamethasone 4 MG/ML VIAL ONE (19:05)
[2019-01-06] MEDS ORDERED: *HR* Succinylcholine 200 MG/10 ML VIAL IVP ONE (19:40)
[2019-01-06] MEDS ORDERED: Ketorolac 30 MG/ML VIAL ONE (19:57)
[2019-01-06] MEDS ORDERED: Naloxone 0.4 MG/ML INJ IVP PRN (21:01)
[2019-01-06] MEDS: *HR* HYDROmorphone (PF) 1 MG/ML SYRINGE IVP PRN (22:23)
[2019-01-07] MEDS: *HR* HYDROmorphone (PF) 1 MG/ML SYRINGE IVP PRN ×2 (03:49→08:18)
[2019-01-07] MEDS: *HR* Heparin 5,000 UNIT/ML VIAL SQ SCH ×3 (05:57→21:07)
[2019-01-07 06:54] LABS: Basophils # 0.1 K/mcL (0.0-0.2); Basophils % 0.9 %; Eosinophils # 0.2 K/mcL (0.0-0.6); Eosinophils % 2.3 %; Hematocrit 29.2 % (35.3-44.9); Hemoglobin 9.7 g/dL (11.5-15.4); Immature Granulocytes % 0.9 % (0-4); Lymphocytes # 3.2 K/mcL (0.6-4.6); Lymphocytes % 49.1 %; Mean Corpuscular HGB Conc 33.2 g/dL (31.6-35.5); Mean Corpuscular Hemoglobin 30.4 pg (28.0-33.3); Mean Corpuscular Volume 91.5 fL (83.0-100.0); Mean Platelet Volume 9.5 fL (9.4-12.4); Monocytes # 0.7 K/mcL (0.0-1.3); Monocytes % 10.1 %; Neutrophils # 2.4 K/mcL (1.6-8.9); Nucleated Red Blood Cells 0.3 /100 WBC (0); Platelet Count 362 K/mcL (140-400); Red Blood Count 3.19 M/mcL (3.82-4.97); Segmented Neutrophils % 36.7 %; White Blood Count 6.5 K/mcL (4.3-11.1)
[2019-01-07 07:03] LABS: BUN/Creatinine Ratio 6 (6-26); Blood Urea Nitrogen 4 mg/dL (6-20); Calcium 6.9 mg/dL (8.6-10.3); Carbon Dioxide 28 mEq/L (23-29); Chloride 102 mEq/L (98-107); Glucose 93 mg/dL (70-105); Osmolality,Calculated 283 (280-300); Potassium 2.9 mEq/L (3.5-5.1); Sodium 138 mEq/L (136-145); eGFR For African Americans > 60 (> 60); eGFR For Non-African Americans > 60 (> 60)
[2019-01-07] MEDS: Thiamine (B-1) 100 MG TABLET PO SCH (08:15)
[2019-01-07] MEDS: Cyanocobalamin (B-12) 1,000 MCG TABLET PO SCH (08:15)
[2019-01-07] MEDS: Folic Acid 1 MG TABLET PO SCH (08:15)
[2019-01-07] MEDS: Vitamin B Complex/Vit C/Vit E 1 EACH TABLET PO SCH (08:15)
[2019-01-07] MEDS: Nicotine 14 MG PATCH.TD24 TD SCH (08:16)
[2019-01-07] MEDS: Piperacillin/Tazobactam 3.375 GM in 0.9 % Sodium Chloride Mini Bag 100 ML IVPB SCH ×4 (08:16→22:56)
[2019-01-08] MEDS: *HR* Heparin 5,000 UNIT/ML VIAL SQ SCH ×3 (04:55→21:17)
[2019-01-08 07:52] LABS: BUN/Creatinine Ratio 6 (6-26); Blood Urea Nitrogen 5 mg/dL (6-20); Calcium 7.6 mg/dL (8.6-10.3); Carbon Dioxide 24 mEq/L (23-29); Chloride 104 mEq/L (98-107); Glucose 107 mg/dL (70-105); Osmolality,Calculated 284 (280-300); Potassium 3.8 mEq/L (3.5-5.1); Sodium 138 mEq/L (136-145); eGFR For African Americans > 60 (> 60); eGFR For Non-African Americans > 60 (> 60)
[2019-01-08] MEDS: Piperacillin/Tazobactam 3.375 GM in 0.9 % Sodium Chloride Mini Bag 100 ML IVPB SCH ×2 (09:10→17:05)
[2019-01-08] MEDS: Nicotine 14 MG PATCH.TD24 TD SCH (09:11)
[2019-01-08] MEDS: Vitamin B Complex/Vit C/Vit E 1 EACH TABLET PO SCH (09:11)
[2019-01-08] MEDS: Cyanocobalamin (B-12) 1,000 MCG TABLET PO SCH (09:11)
[2019-01-08] MEDS: Folic Acid 1 MG TABLET PO SCH (09:11)
[2019-01-08] MEDS: Thiamine (B-1) 100 MG TABLET PO SCH (09:11)
[2019-01-08] MEDS: *HR* HYDROmorphone (PF) 1 MG/ML SYRINGE IVP PRN ×3 (09:16→21:17)
[2019-01-08] MEDS ORDERED: Melatonin 3 MG TABLET PO PRN (22:26)
[2019-01-09] MEDS: Piperacillin/Tazobactam 3.375 GM in 0.9 % Sodium Chloride Mini Bag 100 ML IVPB SCH ×2 (01:11→08:41)
[2019-01-09] MEDS: *HR* Heparin 5,000 UNIT/ML VIAL SQ SCH ×2 (05:24→14:13)
[2019-01-09] MEDS: *HR* HYDROmorphone (PF) 1 MG/ML SYRINGE IVP PRN (05:26)
[2019-01-09] MEDS: Folic Acid 1 MG TABLET PO SCH (08:39)
[2019-01-09] MEDS: Cyanocobalamin (B-12) 1,000 MCG TABLET PO SCH (08:39)
[2019-01-09] MEDS: Vitamin B Complex/Vit C/Vit E 1 EACH TABLET PO SCH (08:40)
[2019-01-09] MEDS: Thiamine (B-1) 100 MG TABLET PO SCH (08:40)
[2019-01-09] MEDS: Nicotine 14 MG PATCH.TD24 TD SCH (08:40)
[2019-01-09 10:51] VITALS: BP 114/68
[2019-01-09] MEDS ORDERED: Acetaminophen 325 MG TABLET PO PRN (12:31)
[2019-01-09] MEDS ORDERED: Silvasorb 44.4 ML TUBE TP SCH (13:45)
[2019-01-09] MEDS ORDERED: Aminoglycoside Consult 1 EACH MC ONE (14:32)
== END 2019-01-09 14:33 | disposition home or self-care (01) | DRG 580 ==
LOC: EMEROOARM 15:53 → 3NENU 15:53 → SUATTDRO 01-05 13:56
PROVIDERS: ADMIT Internal Medicine; ATTEND Internal Medicine